=== PATIENT | male | born 1995 | race Caucasian/White ===

== ENCOUNTER 2018-11-16 06:09 | Emergency (ER) | payer MEDICAID, SELFPAY ==
[2018-07-15 07:24] VITALS: BMI 27.6
[2018-11-16 06:10] VITALS: BP 141/82; PULSE 84; RESP 19; TEMP 37; O2SAT 100; BMI 27.4
--- NOTE | 2018-11-16 06:16 | ED.DCSUM_ITS ---
History of Present Illness Chief Complaint: Abd Pain Informant: Patient Narrative: Stated for the last month he has had abdominal pain intermittently. It is a cramping pain. He has normal more than one bowel movement per day. Today he had one bowel movement. Yesterday he had one bowel movement. Patient denies any fevers or chills. He had 2 episodes of emesis this morning which brought him into the department. He has had decreased oral intake over the last couple days. Denies any diarrhea. Current severity is mild. No home treatment. No previous abdominal problems. Unsure if it was his gallbladder. - Past Medical History (1) Gastroenteritis Status: Acute Past Medical History - Allergies and Home Meds Allergies/Adverse Reactions: Allergies No Known Allergies Allergy (Verified 11/16/18 06:14) Primary Care Physician: Hi Aguilar DO [Primary Care Provider] - Prior records reviewed: Yes Surgical History: no surgical history Smoking Status: Current every day smoker Alcohol: None Drugs: None Review of Systems General: Denies: Chills, Fever, Sweats Eyes: Denies: Visual changes - bilaterally, Diplopia ENT: Denies: Rhinorrhea, Sore throat Cardiovascular: Denies: Chest pain, Palpitations Respiratory: Denies: Dyspnea, Cough, Dyspnea on exertion Gastrointestinal: Reports: Abdominal pain, Nausea, Vomiting. Denies: Diarrhea, Melena, Hematochezia Genitourinary: Denies: Dysuria, Hematuria, Frequency Musculoskeletal: Denies: Back pain, Extremity Pain Skin: Denies: Rash, Wounds Neurological: Denies: Headache, Weakness, Numbness Physical Exam Vital Signs/Narrative: Vital Signs Temp Pulse Resp BP Pulse Ox 11/16/18 06:10 98.6 F 84 19 H 141/82 H 100 General: Well nourished, Well developed, No Acute Distress Head: Normocephalic, Atraumatic Eyes: Perrl, EOMI ENT: Moist mucous membranes, No rhinorrhea Neck: Supple, Nontender Cardiovascular: Regular rate, Regular rhythm, No murmurs Respiratory: No distress, CTA bilaterally, Chest nontender Abdomen: Soft, Nontender, Nondistended, Normal bowel sounds Back: Nontender, Normal Inspection Extremities: Nontender, No edema Skin: Normal color, No rash Neurological: Alert, Oriented x3, Cranial nerves II-XII grossly intact, Normal Strength, Normal Sensation Psychological: Normal affect, Normal Mood Diagnostic/Tx/Re-eval - Medical Decision Making No reproducible tenderness. No tenderness in the gallbladder fossa. Patient given IV fluids and Zofran. Lab work obtained. Lab work shows a slight leukocytosis without left shift. Rest of his lab work is essentially unremarkable. Liver function test lipase normal. Patient felt better after IV fluids and Zofran. Will be discharged with Zofran and Bentyl. He will follow- up with his family doctor for further evaluation. I do not feel he needs an acute CAT scan or has an acute intra-abdominal emergency that would warrant an emergency CAT scan. He will follow-up as an outpatient ED Disposition - Plan for ED Patient: Disposition: Psychiatric Hospital or Unit Diagnosis: Abdominal pain, Vomiting Instructions: ABDOMINAL PAIN, Unkown Cause, (Male) Prescriptions: Dicyclomine HCl [Bentyl] 20 mg PO TIDAC #20 cap Prescription Printed Ondansetron [Zofran Odt] 4 mg PO Q8H PRN PRN #10 tab PRN Reason: Nausea Prescription Printed Referrals: Hi Aguilar DO [Primary Care Provider] -
[2018-11-16] MEDS: 0.9% Normal Saline 1,000 ML 1000 ML IV (06:29)
[2018-11-16] MEDS: Ondansetron 4 MG/2 ML Vial IV (06:29)
[2018-11-16 06:47] LABS: Absolute Lymphocyte Count 3.32 X10^3/ul (0.83-4.51); Absolute Neutrophil Count 7.9 X10^3/uL (2.0-7.7); Basophil# 0.02 X10^3/uL; Basophil% 0.2 % (0-1); Eosinophil# 0.46 X10^3/uL; Eosinophils% 3.7 % (0-5); Hematocrit 44.8 % (40-54); Hemoglobin 15.1 g/dl (13.0-16.5); Lymphocyte # 3.32 X10^3/ul (4.0); Lymphocyte % 26.5 % (19-41); Mean Corp Hgb Conc 33.7 g/gl (32-36); Mean Corpuscular Hgb 30.6 pg (27.0-32.0); Mean Corpuscular Volume 90.7 fL (80-94); Monocyte# 0.85 X10^3/uL; Monocyte% 6.8 % (0-10); Neutrophil # 7.87 X10^3/uL (2.7-7.7); Neutrophil % 62.6 % (47-70); Platelet Count 285 K/mm3 (150-450); RBC Distribution Width CV 13.5 % (11.6-14.6); RBC Distribution Width SD 44.4 fl (35.1-43.9); Red Blood Count 4.94 M/mm3 (4.6-6.2); White Blood Count 12.6 K/mm3 (4.4-11.0)
[2018-11-16 06:50] LABS: POSITIVE COUNT NO; POSITIVE DIFFERENTIAL NO; POSITIVE MORPHOLOGY NO
[2018-11-16 06:58] LABS: ALB/GLOB Ratio 1.1 RATIO (0.9-2.4); AST(SGOT) 21 U/L (15-37); Alanine Aminotransfer ALT/SGPT 30 U/L (16-61); Albumin, Serum 3.8 g/dL (3.2-5.0); Alkaline Phosphatase 60 U/L (45-117); Anion Gap 6 (5-15); BUN 15 mg/dL (7-18); BUN/Creat Ratio 14.4 RATIO (10-20); Calcium,Total 8.9 mg/dL (8.5-10.1); Chloride 108 mmol/L (98-107); Creatinine, Serum 1.04 mg/dL (0.70-1.30); EST Glomerular Filtration Rate 94 mL/min (>60); Est Glom Filt Rate - Afr Amer 113 mL/min (>60); Estimated Creatinine Clearance 117.66 ml/min; Globulin 3.5 g/dL (2.2-4.2); Glucose 99 mg/dL (74-106); Lipase 212 U/L (73-393); Potassium 3.8 mmol/L (3.5-5.1); Protein, Total 7.3 g/dL (6.4-8.2); Sodium Level 141 mmol/L (136-145)
--- NOTE | 2018-11-16 07:07 | ED.DEP ---
ED Disposition - Plan for ED Patient: Disposition: Psychiatric Hospital or Unit Diagnosis: Abdominal pain, Vomiting Instructions: ABDOMINAL PAIN, Unkown Cause, (Male) Prescriptions: Dicyclomine HCl [Bentyl] 20 mg PO TIDAC #20 cap Prescription Printed Famotidine [Pepcid] 20 mg PO BID #28 tab Prescription Printed Ondansetron [Zofran Odt] 4 mg PO Q8H PRN PRN #10 tab PRN Reason: Nausea Prescription Printed Referrals: Hi Aguilar DO [Primary Care Provider] -
[2018-11-16 07:37] VITALS: BP 121/69; PULSE 63; RESP 16; O2SAT 98
== END 2018-11-16 07:38 ==
PROVIDERS: Emergency Provider Emergency Medicine; Family Provider Family Medicine; PCP Family Medicine
DX: R10.9 Unspecified abdominal pain (principal); R11.2 Nausea with vomiting, unspecified; F17.200 Nicotine dependence, unspecified, uncomplicated
CPT/HCPCS: 80053; 83690; 85025; 96361; 96374; 99283; J7030; A4216; J2405

== ENCOUNTER 2019-02-14 07:27 | Emergency (ER) | payer MEDICAID, SELFPAY ==
[2019-02-14 07:28] VITALS: BP 135/68; PULSE 107; RESP 17; TEMP 36.9; O2SAT 99; BMI 27.1
--- NOTE | 2019-02-14 07:38 | ED.DCSUM_ITS ---
History of Present Illness Chief Complaint: Nausea/Vomiting Informant: Patient, Significant Other Onset: Yesterday, Hours Context: Sudden Onset Timing: Continuous Quality: Pain right side with nausea and vomiting Location: Right-sided abdominal pain and bilateral costal margin pain Current Severity: Mild Maximum Severity: Moderate Worsened by: Vomiting Relieved by: Nothing Associated Symptoms: Subjective fever with chills Narrative: Patient is a 23-year-old male who presents with nausea and vomiting 1 hour after eating brought his significant other informed he has been to the urgent care 5 times over the past year for right-sided abdominal pain. He was prescribed Pepcid, dicyclomine and Zofran. Patient answering father states medicine is not helpful. He reports vomiting 12 times since 7 PM. Initially purple in color now green in color. There is no blood or coffee grounds noted. Last bowel movement yesterday and normal. No ill contacts. No known family history of cholelithiasis. He denies cough, shortness of breath or difficulty breathing. He denies dysuria, frequency, urgency or hematuria. There is no history of renal ureterolithiasis. He does report dry mouth, thirst and lightheadedness with standing. He denies black or maroon stool. He has not had any since 1800. Prior similar symptoms: Yes Recent Illness/Hospitalization: No - Past Medical History (1) Gastroenteritis Status: Acute Past Medical History - Allergies and Home Meds Allergies/Adverse Reactions: Allergies No Known Allergies Allergy (Verified 02/14/19 07:28) Primary Care Physician: Hi Aguilar DO [Primary Care Provider] - Prior records reviewed: Yes Surgical History: no surgical history Lives: Spouse/ Significant Other Smoking Status: Current every day smoker Alcohol: Heavy - 7+ beers on weekends Drugs: None Review of Systems General: Reports: Chills, Fever, Subjective, Sweats. Denies: Malaise Eyes: Denies: Visual changes - bilaterally, Blurred Vision - bilaterally ENT: Denies: Bilateral ear pain, Rhinorrhea, Sore throat Cardiovascular: Reports: Chest pain - With vomiting. Denies: Palpitations, Heart racing Respiratory: Denies: Dyspnea, Cough, Dyspnea on exertion Gastrointestinal: Reports: Abdominal pain, Nausea, Vomiting. Denies: Diarrhea, Constipation, Melena, Hematochezia, -, - Genitourinary: Denies: Dysuria, Hematuria, Frequency Musculoskeletal: Denies: Myalgias, Arthralgias, Neck pain, Back pain, Swelling, Extremity Pain, -, - Skin: Denies: Rash, Wounds Neurological: Denies: Headache, Weakness, Numbness Endocrine: Denies: Polyuria, Polydipsia Hematologic: Denies: Easy bruising, Easy bleeding Physical Exam Vital Signs/Narrative: Vital Signs Temp Pulse Resp BP Pulse Ox 02/14/19 07:28 98.5 F 107 H 17 135/68 H 99 Inital Vital Signs reviewed: Yes General: Well nourished, Well developed, No Acute Distress Head: Normocephalic, Atraumatic Eyes: Perrl, EOMI. Negative for: Pale conjunctiva, Scleral icterus ENT: No rhinorrhea, TM's clear, Dry mucous membranes Neck: Supple, Nontender, No lymphadenopathy, No JVD Cardiovascular: Regular rhythm, No murmurs, Normal S1, Normal S2, Tachycardia Respiratory: No distress, CTA bilaterally, Chest nontender Abdomen: Soft, Nondistended, Normal bowel sounds, No masses, Tender - Tenderness with deep palpation upper quadrants.. Negative for: Nontender, Guarding, Rebound tenderness, Hyperactive bowel sounds, Hypoactive bowel sounds, Hepatomegaly, Splenomegaly, Mass, Diez's sign Rectal: Deferred Back: Nontender, Normal Inspection. Negative for: CVA tenderness Extremities: Nontender, No edema Skin: Normal color, No rash, No Trauma. Negative for: Cyanosis, Diaphoresis, Jaundice Neurological: Alert, Oriented x3, Cranial nerves II-XII grossly intact, Normal Strength, Normal Sensation, Normal Gait Psychological: Normal affect, Normal Mood Diagnostic/Tx/Re-eval Impressions Gallbladder Ultrasound 02/14/19 08:38 IMPRESSION: Normal right upper quadrant ultrasound examination. Electronically Signed: Lakhwinder Chan, at 10:28 EDT , Service support , 02/14/19 08:38 Gallbladder [US] Stat Laboratory Results 02/14/19 02/14/19 07:48 07:48 WBC 19.4 H RBC 5.32 Hgb 15.9 Hct 48.5 MCV 91.2 MCH 29.9 MCHC 32.8 RDW Std Deviation 43.0 RDW Coeff of Supa 12.9 Plt Count 336 MPV 8.9 Immature Gran % (Auto) 0.400 Neut % (Auto) 89.1 H Lymph % (Auto) 6.3 L [place] % (Auto) 3.7 Eos % (Auto) 0.2 Baso % (Auto) 0.3 Absolute Neuts (auto) 17.3 H Absolute Lymphs (auto) 1.22 Nucleated RBC % 0 Total Bilirubin 0.90 Direct Bilirubin 0.18 AST 20 ALT 30 Alkaline Phosphatase 65 Total Protein 7.9 Albumin 4.1 Globulin 3.8 Lipase 265 Ultrasound reveals no abnormality to explain patient's right-sided abdominal pain. Liver enzymes and lipase were normal. White count is elevated 19.4 thousand. There is a nonspecific abnormality. Suspect this is secondary to his nausea and vomiting. If patient passes p.o. challenge will discharge to home. - Medical Decision Making With prior history of abdominal pain and reported abdominal pain with nausea vomiting after eating fatty meal will obtain liver enzymes, CBC and lipase. With history of drinking heavily on weekends need to evaluate for pancreatitis as well. Differential diagnosis is viral illness with nausea and vomiting, cholelithiasis with biliary colic, pancreatitis or abdominal pain of unknown etiology She was reassessed at 0845. He was made aware of his results and reason for ultrasound of the right upper quadrant. He reports the nausea has improved. He has not vomited since he is been in the department. Since he has an elevated white count with history of right-sided upper abdominal pain x5 over the past year obtain ultrasound of the right upper quadrant/gallbladder to assess for cholelithiasis, cholecystitis etc. Passed p.o. challenge. Will discharge to home. ED Disposition - Plan for ED Patient: Disposition: Home or Assisted Living Diagnosis: Nausea & vomiting, Right upper quadrant abdominal pain, Mild dehydration Instructions: VOMITING (6y-Adult) Referrals: Hi Aguilar, DO [Primary Care Provider] - 1-2 Days if not improving
[2019-02-14] MEDS: 0.9% Normal Saline 1,000 ML 1000 ML IV ×2 (07:48→08:55)
[2019-02-14] MEDS: Ondansetron 4 MG/2 ML Vial IV (07:53)
[2019-02-14 07:57] LABS: Absolute Lymphocyte Count 1.22 X10^3/uL (0.83-4.51); Absolute Neutrophil Count 17.3 X10^3/uL (2.0-7.7); Basophil# 0.06 X10^3/uL; Basophil% 0.3 % (0-1); Eosinophil# 0.03 X10^3/uL; Eosinophils% 0.2 % (0-5); Hematocrit 48.5 % (40-54); Hemoglobin 15.9 g/dL (13.0-16.5); Lymphocyte # 1.22 X10^3/ul (4.0); Lymphocyte % 6.3 % (19-41); Mean Corp Hgb Conc 32.8 g/dL (32-36); Mean Corpuscular Hgb 29.9 pg (27.0-32.0); Mean Corpuscular Volume 91.2 fL (80-94); Mean Platelet Vol. 8.9 fl (6.2-12.0); Monocyte# 0.71 X10^3/uL; Monocyte% 3.7 % (0-10); NRBC Flagged by Analyzer 0 % (0-5); Neutrophil # 17.32 X10^3/uL (2.7-7.7); Neutrophil % 89.1 % (47-70); Platelet Count 336 K/mm3 (150-450); RBC Distribution Width CV 12.9 % (11.6-14.6); Red Blood Count 5.32 M/mm3 (4.6-6.2); White Blood Count 19.4 K/mm3 (4.4-11.0)
[2019-02-14 08:12] LABS: AST(SGOT) 20 U/L (15-37); Alanine Aminotransfer ALT/SGPT 30 U/L (16-61); Albumin, Serum 4.1 g/dL (3.2-5.0); Alkaline Phosphatase 65 U/L (45-117); Bilirubin, Direct 0.18 mg/dL (0.00-0.30); Globulin 3.8 g/dL (2.2-4.2); Lipase 265 U/L (73-393); Protein, Total 7.9 g/dL (6.4-8.2)
--- NOTE | 2019-02-14 08:38 | US_ITS ---
STUDY: ABDOMINAL ULTRASOUND - RIGHT UPPER QUADRANT REASON FOR VISIT: Male, 23 years old right upper quadrant pain with nausea and vomiting. TECHNIQUE: Ultrasound evaluation of the right upper quadrant was performed with real-time and static bender-scale imaging. TECHNICAL QUALITY: Adequate. COMPARISON: None. FINDINGS: Liver: The liver measures 15.5 cm. There is normal echogenicity of the liver. The bile ducts are within normal limits. There is hepatic color flow. The direction of portal flow is hepatopetal. There is no demonstrated mass lesion. Gallbladder: Normal distended gallbladder. The gallbladder wall measures 2.1 mm. There is a negative sonographic Diez's sign. There is no pericholecystic fluid. There are no gallstones. Common Bile Duct (C.B.D.): The common bile duct measures 2.7 mm. Pancreas: Normal size of the head, body and tail of the pancreas. There is normal echogenicity of the pancreas. There is no demonstrated pancreatic mass or cyst. Right Kidney: Normal size of the right kidney. The right kidney measures 11.7 cm x 5.2 cm x 6.2 cm. Normal renal cortex. The right cortex measures 2.0 cm. There is no demonstrated renal mass or cyst. There is no right hydronephrosis. US/Gallbladder IMPRESSION: Normal right upper quadrant ultrasound examination. Electronically Signed: Lakhwinder Chan, at 10:28 EDT , Service support ,
[2019-02-14 10:14] VITALS: BP 114/60; PULSE 67; RESP 20; O2SAT 100
== END 2019-02-14 11:23 | disposition home or self-care (01) ==
PROVIDERS: Emergency Provider Emergency Medicine; Family Provider Family Medicine; PCP Family Medicine
DX: R11.2 Nausea with vomiting, unspecified (principal); R10.11 Right upper quadrant pain; E86.0 Dehydration; F10.99 Alcohol use, unspecified with unspecified alcohol-induced disorder; F17.200 Nicotine dependence, unspecified, uncomplicated
CPT/HCPCS: 76705; 80076; 83690; 85025; 96361; 96374; 99283; J7030; A4216; J2405

== ENCOUNTER 2019-03-07 | Emergency (ER) | payer MEDICAID, SELFPAY ==
[2019-03-07 00:01] VITALS: BP 130/75; PULSE 74; RESP 20; TEMP 36.3; O2SAT 100; BMI 28.8
--- NOTE | 2019-03-07 00:09 | CT_ITS ---
STUDY: CT ABDOMEN AND PELVIS WITH CONTRAST REASON FOR EXAM: Male, 23 years old. Right-sided abdominal pain RADIATION DOSAGE (If Supplied By Facility): CTDIvol = ( 16.11 ) mGy, DLP = ( 1060.98 ) mGycm TECHNIQUE: Transaxial images were obtained from the dome of the diaphragm to the symphysis pubis with oral contrast. Oral and amp; IV Gastrografin and amp; 100mL Isovue-300 100ML was administered. Sagittal and coronal images were reconstructed. Individualized dose optimization techniques were used for this CT. COMPARISON: None. FINDINGS: The visualized lung bases are unremarkable. The visualized portions of the heart are within normal limits. Normal liver. Normal gallbladder and extrahepatic biliary system. Normal spleen. Normal pancreas. Normal bilateral adrenal glands. There is a proximal right ureteral calculus measuring approximately 6 mm with mild upstream right hydroureter and hydronephrosis. There is bilateral nonobstructive subcentimeter nephrolithiasis. Normal visualized stomach. Normal small intestine. Normal colon. The appendix is visualized and appears normal. Normal abdominal aorta. Normal inferior vena cava. Normal retroperitoneum. Normal urinary bladder. Normal abdominal wall. Normal osseous structures. CT/Abdomen/Pelvis WITH Contrast IMPRESSION: 6 mm proximal right ureteral calculus with mild upstream hydroureter and hydronephrosis. Electronically Signed: Dave Owens, at 2:46 EDT Tel , Service support ,
--- NOTE | 2019-03-07 00:10 | ED.DCSUM_ITS ---
- ER Visit Summary Date of Service: 03/07/19 Chief Complaint: Abdominal pain History of Present Illness: The patient is a 23 M presenting with abdominal pain, nausea, vomiting. Patient states this started 1.5 hours ago. He has vomited several times. Denies diarrhea. Denies blood in his emesis. He states he drank apple cider before this started. He has history of similar symptoms in the past. He was seen in mid-January for similar complaints. He had a gallbladder ultrasound at that time which was normal. He admits to occasional marijuana use. Denies fever or other complaints. Physical Examination: Vitals are stable. Patient is afebrile. Alert no acute distress. HEENT exam dry mucous membranes Neck is supple. Lungs are clear and equal bilaterally. Heart is regular rate and rhythm. Abdomen is soft right lower quadrant tenderness with no guarding or rebound Back: Nontender Extremities are unremarkable. Skin is warm and dry. Remainder of exam is unremarkable. Emergency Department Course and Treatment: Patient was given IV fluids, morphine, Zofran. CBC normal except white count 24.4. Previous white count 19.4. Chemistries show glucose 120. Liver lipase are normal. CT abdomen pelvis shows 6 mm proximal right ureteral calculus with mild upstream hydroureter and hydronephrosis. Urinalysis shows 0 white blood cells, 50-100 red blood cells. On reevaluation, patient is feeling much improved. He is given prescription for Percocet and Zofran. Advised to follow-up with Dr. Cali. Advised to return to the ED for worsening complaints. Disposition: Discharge home Impression: Urolithiasis This note was generated with [employer] dictation software. It may contain incorrect words, spelling, and punctuation that were not noted in review of the chart prior to signing ED Disposition - Plan for ED Patient: Instructions: KIDNEY STONE w/ Colic Prescriptions: Oxycodone HCl/Acetaminophen [Percocet 5/325] 1 tab PO Q6H PRN PRN 3 Days #12 tab PRN Reason: Pain Prescription Printed Ondansetron [Zofran Odt] 4 mg PO Q8H PRN PRN #10 tab PRN Reason: Nausea Prescription Printed Referrals: Hi Aguilar DO [Primary Care Provider] - Marty Cali MD [STAFF PHYSICIAN] -
[2019-03-07] MEDS: 0.9% Normal Saline 1,000 ML 1000 ML IV (00:16)
[2019-03-07] MEDS: Ondansetron 4 MG/2 ML Vial IV (00:16)
[2019-03-07 00:25] LABS: Absolute Lymphocyte Count 3.41 X10^3/uL (0.83-4.51); Absolute Neutrophil Count 18.9 X10^3/uL (2.0-7.7); Basophil# 0.11 X10^3/uL; Basophil% 0.5 % (0-1); Eosinophil# 0.29 X10^3/uL; Eosinophils% 1.2 % (0-5); Hematocrit 46.8 % (40-54); Hemoglobin 15.8 g/dL (13.0-16.5); Lymphocyte # 3.41 X10^3/ul (4.0); Mean Corp Hgb Conc 33.8 g/dL (32-36); Mean Corpuscular Hgb 30.2 pg (27.0-32.0); Mean Corpuscular Volume 89.5 fL (80-94); Mean Platelet Vol. 8.9 fl (6.2-12.0); Monocyte% 6.5 % (0-10); NRBC Flagged by Analyzer 0 % (0-5); Neutrophil # 18.89 X10^3/uL (2.7-7.7); Neutrophil % 77.3 % (47-70); POSITIVE DIFFERENTIAL YES; Platelet Count 393 K/mm3 (150-450); RBC Distribution Width CV 12.6 % (11.6-14.6); RBC Distribution Width SD 41.7 fl (35.1-43.9); Red Blood Count 5.23 M/mm3 (4.6-6.2); White Blood Count 24.4 K/mm3 (4.4-11.0)
[2019-03-07 00:27] LABS: Differential Indicated SCAN CRITERIA MET
[2019-03-07 00:43] LABS: ALB/GLOB Ratio 1.3 RATIO (0.9-2.4); AST(SGOT) 22 U/L (15-37); Alanine Aminotransfer ALT/SGPT 31 U/L (16-61); Albumin, Serum 4.5 g/dL (3.2-5.0); Alkaline Phosphatase 61 U/L (45-117); Anion Gap 10 (5-15); BUN 16 mg/dL (7-18); BUN/Creat Ratio 13.7 RATIO (10-20); Calcium,Total 9.4 mg/dL (8.5-10.1); Chloride 106 mmol/L (98-107); Creatinine, Serum 1.17 mg/dL (0.70-1.30); EST Glomerular Filtration Rate 82 mL/min (>60); Est Glom Filt Rate - Afr Amer 99 mL/min (>60); Estimated Creatinine Clearance 98.19 ml/min; Globulin 3.5 g/dL (2.2-4.2); Glucose 120 mg/dL (74-106); Lipase 240 U/L (73-393); Potassium 3.5 mmol/L (3.5-5.1); Sodium Level 140 mmol/L (136-145)
[2019-03-07] MEDS: Morphine 4 MG/ML Syringe IV ×2 (00:47→02:40)
[2019-03-07] MEDS: proMETHazine 25 MG/ML Syringe 6.25 MG IV (00:47)
[2019-03-07 00:50] LABS: Differential Comment SCANNED
[2019-03-07] MEDS: 0.9% Normal Saline 1,000 ML 999 ML IV (01:22)
[2019-03-07 02:28] LABS: Bacteria 0 SEEN /hpf (None Seen); Mucous, Urine 0 SEEN /hpf (<or=2+); Squamous Epithelial Cells - UA 0 SEEN /hpf (0-5); White Blood Cells 0 SEEN /hpf (0-5)
[2019-03-07 02:30] LABS: Color, Urine Yellow (Yellow); Glucose, Dipstick Normal (Normal); Ketone-Dipstick 5 mg/dl (Negative); Leukocyte Esterase-Dipstick 25 /ul (Negative); Nitrite-Dipstick Negative (Negative); Occult Blood-Urine 250 /ul (Negative); Protein-Dipstick 30 mg/dl (Negative); Specific Gravity, Urine 1.015 (1.002-1.030); Urine Bilirubin Dipstick Negative (Negative); Urine Clarity Sl. Cloudy (Clear); Urine Urobilinogen Normal (Normal)
[2019-03-07 02:37] LABS: Amorphous Sediment 1+; Red Blood Cells-Urine 50-100 SEEN /hpf (0-5)
--- NOTE | 2019-03-07 02:53 | ED.DEP ---
ED Disposition - Plan for ED Patient: Instructions: KIDNEY STONE w/ Colic Prescriptions: Oxycodone HCl/Acetaminophen [Percocet 5/325] 1 tablet PO Q6H PRN PRN 3 Days #12 tablet PRN Reason: Pain Ondansetron [Zofran Odt] 4 mg PO Q8H PRN PRN #10 tablet PRN Reason: Nausea Referrals: Hi Aguilar DO [Primary Care Provider] - Marty Cali MD [STAFF PHYSICIAN] -
[2019-03-07 03:09] VITALS: BP 115/60; PULSE 67; RESP 18; O2SAT 100
[2019-03-07 12:28] LABS: Pathologist Review Reviewed
== END 2019-03-07 03:10 | disposition home or self-care (01) ==
LOC: ED 00:28
PROVIDERS: Emergency Provider Emergency Medicine; Family Provider Family Medicine; PCP Family Medicine
DX: N13.2 Hydronephrosis with renal and ureteral calculous obstruction (principal); F12.90 Cannabis use, unspecified, uncomplicated
CPT/HCPCS: 74177; 80053; 81001; 83690; 85025; 96361; 96374; 96375; 96376; 99283; J7030; Q9967; A4216; J2405

== ENCOUNTER 2019-03-07 20:05 | Observation (INO) | payer MEDICAID, SELFPAY ==
[2019-03-07 00:01] VITALS: BMI 28.8
[2019-03-07 20:05] VITALS: BP 154/75; PULSE 66; RESP 18; TEMP 37; O2SAT 100; BMI 27.2
--- NOTE | 2019-03-07 20:52 | ED.DCSUM_ITS ---
History of Present Illness Chief Complaint: Flank Pain Detail of Chief Complaint: Right flank pain Informant: Patient, Significant Other Onset: Yesterday Current Severity: Severe Maximum Severity: Severe Narrative: Patient presents with right flank pain. Significant other states he had pain intermittently for several years, but pain suddenly worsened yesterday. He was seen in the ER yesterday and diagnosed with a 6 mm proximal right ureter stone. Significant other states that he has not been able to keep his pain medication down today due to vomiting. Past Medical History - Allergies and Home Meds Allergies/Adverse Reactions: Allergies No Known Allergies Allergy (Verified 03/07/19 20:07) Primary Care Physician: Hi Aguilar DO [Primary Care Provider] - Prior records reviewed: Yes Past Medical History: - - Reviewed Surgical History: no surgical history Lives: Spouse/ Significant Other Smoking Status: Current every day smoker Review of Systems General: Denies: Chills, Fever Eyes: Denies: Visual changes - bilaterally ENT: Denies: Bilateral ear pain Cardiovascular: Denies: Chest pain Respiratory: Denies: Dyspnea, Cough Gastrointestinal: Reports: Abdominal pain, Nausea, Vomiting. Denies: Diarrhea, Constipation Musculoskeletal: Reports: Back pain - Right flank. Denies: Extremity Pain Neurological: Denies: Headache Hematologic: Denies: Easy bruising Physical Exam Vital Signs/Narrative: Vital Signs Temp Pulse Resp BP Pulse Ox 03/07/19 20:05 98.6 F 66 18 154/75 H 100 Inital Vital Signs reviewed: Yes General: Well nourished, Well developed Head: Normocephalic ENT: Moist mucous membranes Neck: Supple Cardiovascular: Regular rate, Regular rhythm Respiratory: No distress, CTA bilaterally Abdomen: Soft, Tender - Mild right lower quadrant tenderness.. Negative for: Guarding, Rebound tenderness Back: CVA tenderness Extremities: Nontender Skin: Normal color, No rash Neurological: Alert, Oriented x3 Psychological: Normal affect Diagnostic/Tx/Re-eval Impressions KUB X-Ray 03/07/19 20:55 IMPRESSION: No obstruction. Electronically Signed: Alexsander Alcocer MD at 22:11 EDT , Service support , 03/07/19 20:55 KUB [Abdomen Single View] [RAD] Stat Laboratory Results 03/07/19 03/07/19 03/07/19 21:25 21:25 21:25 WBC 19.4 H RBC 5.09 Hgb 15.3 Hct 46.4 MCV 91.2 MCH 30.1 MCHC 33.0 RDW Std Deviation 43.8 RDW Coeff of Supa 13.0 Plt Count 329 MPV 9.1 Immature Gran % (Auto) 0.400 Neut % (Auto) 83.9 H Lymph % (Auto) 9.7 L [place] % (Auto) 5.5 Eos % (Auto) 0.2 Baso % (Auto) 0.3 Absolute Neuts (auto) 16.3 H Absolute Lymphs (auto) 1.87 Nucleated RBC % 0 Sodium 140 Potassium 3.6 Chloride 106 Carbon Dioxide 25.0 Anion Gap 9 BUN 19 H Creatinine 1.33 H Estim Creat Clear Calc 89.19 Est GFR (MDRD) Af Amer 85 Est GFR (MDRD) Non-Af 70 BUN/Creatinine Ratio 14.3 Glucose 120 H Calcium 9.4 Urine Color Yellow Urine Clarity Sl. Cloudy Urine pH 5.0 Ur Specific [place] 1.025 Urine Protein 30 H Urine Glucose (UA) Normal Urine Ketones 50 H Urine Occult Blood 250 H Urine Nitrite Negative Urine Bilirubin Negative Urine Urobilinogen 1 H Ur Leukocyte Esterase 25 H Urine RBC 10-25 SEEN Urine WBC 0-5 SEEN Ur Squamous Epith Cells 0-5 SEEN Urine Bacteria 0 SEEN Urine Mucus 0 SEEN - Medical Decision Making Patient was given morphine, Toradol, Zofran, and IV fluids. On repeat evaluation pain is improving. In spite of taking Zofran at home he is still continued to have vomiting today and could not keep his pain meds down. I did review his CT scan. Stone was 6 mm in size and proximal in the ureter causing hydronephrosis and hydroureter. I will speak with Dr. Cali to see if we can bring the patient in for observation and further pain control and management. ED Disposition - Plan for ED Patient: Disposition: Acute Care Hospital [facility] Diagnosis: Right kidney stone Referrals: Hi Aguilar DO [Primary Care Provider] -
--- NOTE | 2019-03-07 20:55 | RAD_ITS ---
STUDY: X-RAY - ABDOMEN/PELVIS REASON FOR EXAM: Male, 23 years old. Pain and vomiting. Kidney stones TECHNIQUE: Two AP supine views of the abdomen and pelvis. COMPARISON: March 07, 2019. FINDINGS: Normal visualized lung bases. There are no dilated loops of bowel. There is contrast in the colon from recent CT scan including obscuring region of kidney stones seen on recent CT . There is no demonstrated free abdominal air. Normal soft tissue structures. Normal visualized osseous structures. RAD/Abdomen Single View IMPRESSION: No obstruction. Electronically Signed: Alexsander Alcocer MD at 22:11 EDT , Service support ,
[2019-03-07] MEDS: Ketorolac 30 MG/ML Syringe IV (21:19)
[2019-03-07] MEDS: Ondansetron 4 MG/2 ML Vial IV (21:19)
[2019-03-07] MEDS: 0.9% Normal Saline 1,000 ML 150 ML IV (21:19)
[2019-03-07] MEDS: Morphine 4 MG/ML Syringe IV (21:19)
[2019-03-07 21:29] LABS: Bacteria 0 SEEN /hpf (None Seen); Mucous, Urine 0 SEEN /hpf (<or=2+)
[2019-03-07 21:32] LABS: Color, Urine Yellow (Yellow); Glucose, Dipstick Normal (Normal); Ketone-Dipstick 50 mg/dl (Negative); Leukocyte Esterase-Dipstick 25 /ul (Negative); Nitrite-Dipstick Negative (Negative); Occult Blood-Urine 250 /ul (Negative); Protein-Dipstick 30 mg/dl (Negative); Specific Gravity, Urine 1.025 (1.002-1.030); Urine Bilirubin Dipstick Negative (Negative); Urine Clarity Sl. Cloudy (Clear); Urine Urobilinogen 1 mg/dl (Normal)
[2019-03-07 21:33] LABS: Absolute Lymphocyte Count 1.87 X10^3/uL (0.83-4.51); Absolute Neutrophil Count 16.3 X10^3/uL (2.0-7.7); Basophil# 0.06 X10^3/uL; Basophil% 0.3 % (0-1); Eosinophil# 0.03 X10^3/uL; Eosinophils% 0.2 % (0-5); Hematocrit 46.4 % (40-54); Hemoglobin 15.3 g/dL (13.0-16.5); Lymphocyte # 1.87 X10^3/ul (4.0); Lymphocyte % 9.7 % (19-41); Mean Corpuscular Hgb 30.1 pg (27.0-32.0); Mean Corpuscular Volume 91.2 fL (80-94); Mean Platelet Vol. 9.1 fl (6.2-12.0); Monocyte# 1.07 X10^3/uL; Monocyte% 5.5 % (0-10); NRBC Flagged by Analyzer 0 % (0-5); Neutrophil # 16.26 X10^3/uL (2.7-7.7); Neutrophil % 83.9 % (47-70); Platelet Count 329 K/mm3 (150-450); RBC Distribution Width SD 43.8 fl (35.1-43.9); Red Blood Count 5.09 M/mm3 (4.6-6.2); White Blood Count 19.4 K/mm3 (4.4-11.0)
[2019-03-07 21:38] LABS: Red Blood Cells-Urine 10-25 SEEN /hpf (0-5); Squamous Epithelial Cells - UA 0-5 SEEN /hpf (0-5); White Blood Cells 0-5 SEEN /hpf (0-5)
[2019-03-07 21:46] LABS: Anion Gap 9 (5-15); BUN 19 mg/dL (7-18); BUN/Creat Ratio 14.3 RATIO (10-20); Calcium,Total 9.4 mg/dL (8.5-10.1); Chloride 106 mmol/L (98-107); Creatinine, Serum 1.33 mg/dL (0.70-1.30); EST Glomerular Filtration Rate 70 mL/min (>60); Est Glom Filt Rate - Afr Amer 85 mL/min (>60); Estimated Creatinine Clearance 89.19 ml/min; Glucose 120 mg/dL (74-106); Potassium 3.6 mmol/L (3.5-5.1); Sodium Level 140 mmol/L (136-145)
[2019-03-07 22:11] VITALS: BP 145/70; PULSE 65; RESP 14; O2SAT 98
[2019-03-07 23:12] VITALS: BP 135/80; PULSE 62; RESP 14; O2SAT 98
[2019-03-07 23:57] VITALS: BMI 27.5
[2019-03-08 00:44] VITALS: BMI 27.6
[2019-03-08 00:59] VITALS: BP 109/61; PULSE 60; RESP 16; TEMP 36.8; O2SAT 99
[2019-03-08 05:06] VITALS: BP 107/59; PULSE 65; RESP 14; TEMP 36.7; O2SAT 100
[2019-03-08] MEDS: 0.9% Normal Saline 1,000 ML 75 ML IV (05:12)
[2019-03-08] MEDS: Ketorolac 15 MG/ML Vial IV (06:47)
--- NOTE | 2019-03-08 07:40 | PCM.HP.STD ---
History of Present Illness Date of Admission: 03/08/19 Chief Complaint: Right renal calculi and ureteral calculi The patient is a 23 year old male who presents with a 5 mm stone in the mid right ureter ER called me and asked me to admit the patient for kidney stone pain. This morning the patient was comfortable and no fevers or chills no signs of infection. Will discharge patient this morning on pain medicine and arrange outpatient surgery Past Medical History Medical History: Medical History (Last Updated 07/15/18 @ 07:27 by Yadira Mast) Diarrhea R19.7 Difficulty balancing R29.818 History of loss of consciousness Z87.898 Allergies No Known Allergies Allergy (Verified 03/07/19 20:07) Home Medications: Ambulatory Orders Medication Instructions Recorded Ondansetron [Zofran Odt] 4 mg PO Q8H PRN PRN #10 tab 03/07/19 Oxycodone HCl/Acetaminophen 1 tab PO Q6H PRN PRN 3 Days #12 tab 03/07/19 [Percocet 5/325] Tazarotene [Tazorac] 1 applic TOPICAL BID 03/07/19 Multivitamin with Minerals 1 tab PO DAILY 03/08/19 [Multiple Vitamin] Surgical History: no surgical history Lives: Spouse/ Significant Other Smoking Status: Current some day smoker Tobacco Use: Cigarettes Review of Systems Constitutional: Denies: Chills, Fever, Weight Change HEENT: Denies: Head Aches, Sinus Congestion, Sinus Drainage Cardiovascular: Denies: Chest Pain, Palpitations Respiratory: Denies: Cough, Shortness of breath at rest, Sputum production Gastrointestinal: Denies: Abdominal Pain, Nausea, Vomiting Genitourinary: Denies: Dysuria Musculoskeletal: Denies: Joint Pain, Joint Tenderness Skin: Denies: Rash, Wounds Neurological: Denies: Numbness, Tingling, Focal weakness Psychiatric: Denies: Anxiety, Depression, Homicidal Ideations, Suicidal Ideations Hematologic/ Lymphatic: Denies: Easy Bruising, Easy Bleeding VTE Information - Inpt Only VTE Present on Admission: No VTE Mechan Device Prophylaxis: SCD's Patient Problems: Active and Suspected Problems (Last Updated 07/15/18 @ 07:27 by Yadira Mast) Right kidney stone (Acute) - Physical Exam General: Alert, Oriented x3, Cooperative HEENT: Atraumatic, PERRLA, EOMI, Normocephalic Neck: Supple, No JVD, Negative Carotid Bruits Lungs: Clear to auscultation, Normal air movement Cardiovascular: Regular rate, No murmurs Abdomen: Bowel Sounds Present, Soft, Non Tender Extremities: No edema, Capillary Refill Less than 3 Seconds Skin: No rashes, No breakdown Musculoskeletal: No Tenderness to Palpation of Joints or Extremities Neurological: Cranial nerves II-XII grossly intact Psych/Mental Status: Normal Affect, Appropriate Vital Signs Temp Pulse Resp BP Pulse Ox 98.1 F 65 14 107/59 L 100 03/08/19 05:06 03/08/19 05:06 03/08/19 05:06 03/08/19 05:06 03/08/19 05:06 Oxygen Delivery Method Room Air Weight: 87.1 kg Body Mass Index (BMI) 27.5 Intake and Output for Last 24 Hours 03/06/19 03/07/19 03/08/19 23:59 23:59 23:59 Intake Total 1000 / 1000 Output Total 150 / 150 Balance 850 / 850 Laboratory Tests Past 24 Hrs 03/07/19 03/07/19 03/07/19 21:25 21:25 21:25 WBC 19.4 H RBC 5.09 Hgb 15.3 Hct 46.4 MCV 91.2 MCH 30.1 MCHC 33.0 RDW Std Deviation 43.8 RDW Coeff of Supa 13.0 Plt Count 329 MPV 9.1 Immature Gran % (Auto) 0.400 Neut % (Auto) 83.9 H Lymph % (Auto) 9.7 L [place] % (Auto) 5.5 Eos % (Auto) 0.2 Baso % (Auto) 0.3 Absolute Neuts (auto) 16.3 H Absolute Lymphs (auto) 1.87 Nucleated RBC % 0 Sodium 140 Potassium 3.6 Chloride 106 Carbon Dioxide 25.0 Anion Gap 9 BUN 19 H Creatinine 1.33 H Estim Creat Clear Calc 89.19 Est GFR (MDRD) Af Amer 85 Est GFR (MDRD) Non-Af 70 BUN/Creatinine Ratio 14.3 Glucose 120 H Calcium 9.4 Urine Color Yellow Urine Clarity Sl. Cloudy Urine pH 5.0 Ur Specific [place] 1.025 Urine Protein 30 H Urine Glucose (UA) Normal Urine Ketones 50 H Urine Occult Blood 250 H Urine Nitrite Negative Urine Bilirubin Negative Urine Urobilinogen 1 H Ur Leukocyte Esterase 25 H Urine RBC 10-25 SEEN Urine WBC 0-5 SEEN Ur Squamous Epith Cells 0-5 SEEN Urine Bacteria 0 SEEN Urine Mucus 0 SEEN Assessment/Plan All Active Problems (Last Updated 07/15/18 @ 07:27 by Yadira Mast) Right kidney stone (Acute) Gastroenteritis (Acute) 23-year-old male with a right mid ureteral calculi admitted for pain control will discharge home this morning with pain medicine and antinausea pills will have my office set him up for outpatient surgery right ESWL possible stent this coming Thursday.
--- NOTE | 2019-03-08 07:44 | DCINST_ITS ---
Discharge Diet: Light diet - advance as tolerated Discharge Activity: Return to Normal Activity Call your doctor if your incision/area has: Continuous Slow Oozing, Sudden Increased Bleeding, Increased Pain/ Swelling, Increased Redness, Foul Smelling Discharge, Swelling at the incision site Suture Line Care: Avoid Pulling/Pushing, Avoid Pinching/Bending Allergies/Adverse Reactions: Allergies No Known Allergies Allergy (Verified 03/07/19 20:07) Medications to take at Discharge Ondansetron [Zofran Odt] 4 mg PO Q8H PRN PRN #10 tab 03/07/19 Oxycodone HCl/Acetaminophen [Percocet 5/325] 1 tab PO Q6H PRN PRN 3 Days #12 tab 03/07/19 Tazarotene [Tazorac] 1 applic TOPICAL BID 03/07/19 HYDROmorphone tablet [Dilaudid] 2 mg PO Q3H PRN PRN 5 Days #20 tab 03/08/19 Ketorolac [Toradol] 10 mg PO Q6H PRN PRN #10 tab 03/08/19 Multivitamin with Minerals [Multiple Vitamin] 1 tab PO DAILY 03/08/19 Ondansetron [Zofran Odt] 4 mg PO Q8H PRN PRN #10 tab 03/08/19 The following prescriptions were given: HYDROmorphone tablet [Dilaudid] 2 mg PO Q3H PRN PRN 5 Days #20 tab PRN Reason: Pain Or Fever Prescription Printed Ketorolac [Toradol] 10 mg PO Q6H PRN PRN #10 tab PRN Reason: severe pain Prescription Printed Ondansetron [Zofran Odt] 4 mg PO Q8H PRN PRN #10 tab PRN Reason: Nausea Prescription Printed Primary Care Physician: Hi Aguialr DO [Primary Care Provider] - Test Results: Test results from this visit will be discussed in further detail at your follow- up appointment, if applicable. Please Follow Up With: Marty Cali MD When: please call to set up surgery for stone
[2019-03-08 08:03] VITALS: BP 127/71; PULSE 69; RESP 18; TEMP 36.6; O2SAT 98
== END 2019-03-08 09:00 | disposition home or self-care (01) ==
LOC: ED 22:40 → MS2 23:17
PROVIDERS: Admitting Provider Urology; Emergency Provider Emergency Medicine; Family Provider Family Medicine; PCP Family Medicine; Visit Provider Urology
DX: K52.9 Noninfective gastroenteritis and colitis, unspecified (principal); N13.2 Hydronephrosis with renal and ureteral calculous obstruction; F17.210 Nicotine dependence, cigarettes, uncomplicated; F12.90 Cannabis use, unspecified, uncomplicated
CPT/HCPCS: 74018; 74177; 80048; 80053; 81001; 83690; 85025; 96361; 96374; 96375; 96376; 99218; 99283; 99285; J7030; Q9967; A4216; G0378; J2405

== ENCOUNTER 2019-03-11 14:07 | Day surgery (SDC) | payer MEDICAID, SELFPAY ==
--- NOTE | 2019-03-11 14:13 | RAD_ITS ---
STUDY: X-RAY - ABDOMEN/PELVIS REASON FOR EXAM: Male, 23 years old. Right renal stone TECHNIQUE: Frontal views of the abdomen were performed COMPARISON: 07 March 2019 FINDINGS: There are 2 small stones in the right renal lower pole and approximately 5 and 3 mm in size. There is a 3-4 mm left renal upper pole stone. There is no intestinal obstruction. Skeletal structures are intact. Appearance is concordant with recent CT. RAD/Abdomen Single View IMPRESSION: 2 small stones on the right, one on the left, all stones measuring less than 5 mm. Electronically Signed: Autumn Hunter, at 15:37 EDT Tel , Service support ,
[2019-03-11 14:35] VITALS: BP 140/86; PULSE 64; RESP 16; TEMP 36.7; O2SAT 99; BMI 26.5
[2019-03-11] MEDS: Lactated Ringers 1,000 ML 100 ML IV (14:49)
--- NOTE | 2019-03-11 18:07 | PCM.HP.BLA ---
History and Physical Date of Admission: 03/11/19 History of Present Illness Date of Admission: 03/08/19 Chief Complaint: Right renal calculi and ureteral calculi The patient is a 23 year old male who presents with a 5 mm stone in the mid right ureter ER called me and asked me to admit the patient for kidney stone pain. This morning the patient was comfortable and no fevers or chills no signs of infection. Will discharge patient this morning on pain medicine and arrange outpatient surgery Past Medical History Medical History: Medical History (Last Updated 07/15/18 @ 07:27 by Yadira Mast) Diarrhea R19.7 Difficulty balancing R29.818 History of loss of consciousness Z87.898 Allergies No Known Allergies Allergy (Verified 03/07/19 20:07) Home Medications: Ambulatory Orders Medication Instructions Recorded Ondansetron [Zofran Odt] 4 mg PO Q8H PRN PRN #10 tab 03/07/19 Oxycodone HCl/Acetaminophen 1 tab PO Q6H PRN PRN 3 Days #12 tab 03/07/19 [Percocet 5/325] Tazarotene [Tazorac] 1 applic TOPICAL BID 03/07/19 Multivitamin with Minerals 1 tab PO DAILY 03/08/19 [Multiple Vitamin] Surgical History: no surgical history Lives: Spouse/ Significant Other Smoking Status: Current some day smoker Tobacco Use: Cigarettes Review of Systems Constitutional: Denies: Chills, Fever, Weight Change HEENT: Denies: Head Aches, Sinus Congestion, Sinus Drainage Cardiovascular: Denies: Chest Pain, Palpitations Respiratory: Denies: Cough, Shortness of breath at rest, Sputum production Gastrointestinal: Denies: Abdominal Pain, Nausea, Vomiting Genitourinary: Denies: Dysuria Musculoskeletal: Denies: Joint Pain, Joint Tenderness Skin: Denies: Rash, Wounds Neurological: Denies: Numbness, Tingling, Focal weakness Psychiatric: Denies: Anxiety, Depression, Homicidal Ideations, Suicidal Ideations Hematologic/ Lymphatic: Denies: Easy Bruising, Easy Bleeding VTE Information - Inpt Only VTE Present on Admission: No VTE Mechan Device Prophylaxis: SCD's Patient Problems: Active and Suspected Problems (Last Updated 07/15/18 @ 07:27 by Yadira Mast) Right kidney stone (Acute) - Physical Exam General: Alert, Oriented x3, Cooperative HEENT: Atraumatic, PERRLA, EOMI, Normocephalic Neck: Supple, No JVD, Negative Carotid Bruits Lungs: Clear to auscultation, Normal air movement Cardiovascular: Regular rate, No murmurs Abdomen: Bowel Sounds Present, Soft, Non Tender Extremities: No edema, Capillary Refill Less than 3 Seconds Skin: No rashes, No breakdown Musculoskeletal: No Tenderness to Palpation of Joints or Extremities Neurological: Cranial nerves II-XII grossly intact Psych/Mental Status: Normal Affect, Appropriate Vital Signs Temp Pulse Resp BP Pulse Ox 98.1 F 65 14 107/59 L 100 03/08/19 05:06 03/08/19 05:06 03/08/19 05:06 03/08/19 05:06 03/08/19 05:06 Oxygen Delivery Method Room Air Weight: 87.1 kg Body Mass Index (BMI) 27.5 Intake and Output for Last 24 Hours 03/06/19 03/07/19 03/08/19 23:59 23:59 23:59 Intake Total 1000 / 1000 Output Total 150 / 150 Balance 850 / 850 Laboratory Tests Past 24 Hrs 03/07/19 03/07/19 03/07/19 21:25 21:25 21:25 WBC 19.4 H RBC 5.09 Hgb 15.3 Hct 46.4 MCV 91.2 MCH 30.1 MCHC 33.0 RDW Std Deviation 43.8 RDW Coeff of Supa 13.0 Plt Count 329 MPV 9.1 Immature Gran % (Auto) 0.400 Neut % (Auto) 83.9 H Lymph % (Auto) 9.7 L [place] % (Auto) 5.5 Eos % (Auto) 0.2 Baso % (Auto) 0.3 Absolute Neuts (auto) 16.3 H Absolute Lymphs (auto) 1.87 Nucleated RBC % 0 Sodium 140 Potassium 3.6 Chloride 106 Carbon Dioxide 25.0 Anion Gap 9 BUN 19 H Creatinine 1.33 H Estim Creat Clear Calc 89.19 Est GFR (MDRD) Af Amer 85 Est GFR (MDRD) Non-Af 70 BUN/Creatinine Ratio 14.3 Glucose 120 H Calcium 9.4 Urine Color Yellow Urine Clarity Sl. Cloudy Urine pH 5.0 Ur Specific [place] 1.025 Urine Protein 30 H Urine Glucose (UA) Normal Urine Ketones 50 H Urine Occult Blood 250 H Urine Nitrite Negative Urine Bilirubin Negative Urine Urobilinogen 1 H Ur Leukocyte Esterase 25 H Urine RBC 10-25 SEEN Urine WBC 0-5 SEEN Ur Squamous Epith Cells 0-5 SEEN Urine Bacteria 0 SEEN Urine Mucus 0 SEEN Assessment/Plan All Active Problems (Last Updated 07/15/18 @ 07:27 by Yadira Mast) Right kidney stone (Acute) Gastroenteritis (Acute) 23-year-old male with a right mid ureteral calculi admitted for pain control will discharge home this morning with pain medicine and antinausea pills will have my office set him up for outpatient surgery right ESWL possible stent this coming Thursday. Plan for Right ESWL today, possible stent
[2019-03-11] MEDS: Cefazolin 2 GM in 0.9% Normal Saline 100 ML IV (18:08)
--- NOTE | 2019-03-11 18:08 | DCINST_ITS ---
Discharge Diet: Light diet - advance as tolerated Discharge Activity: Return to Normal Activity, - - may return to work on Thursday Call your doctor if your incision/area has: Continuous Slow Oozing, Sudden Increased Bleeding, Increased Pain/ Swelling, Increased Redness, Foul Smelling Discharge, Swelling at the incision site Call your doctor if you observe: Fever of 101 or Higher, Uncontrolled pain Suture Line Care: Avoid Pulling/Pushing, Avoid Pinching/Bending Instructions: Shock Wave Lithotripsy Allergies/Adverse Reactions: Allergies No Known Allergies Allergy (Verified 03/10/19 13:05) Medications to take at Discharge Ondansetron [Zofran Odt] 4 mg PO Q8H PRN PRN #10 tab 03/07/19 Oxycodone HCl/Acetaminophen [Percocet 5/325] 1 tab PO Q6H PRN PRN 3 Days #12 tab 03/07/19 Tazarotene [Tazorac] 1 applic TOPICAL BID 03/07/19 HYDROmorphone tablet [Dilaudid] 2 mg PO Q3H PRN PRN 5 Days #20 tab 03/08/19 Ketorolac [Toradol] 10 mg PO Q6H PRN PRN #10 tab 03/08/19 Multivitamin with Minerals [Multiple Vitamin] 1 tab PO DAILY 03/08/19 Hydrocodone Bitart/Apap 5-325 [[place] 5MG-325MG] 1 tab PO Q4H PRN PRN #20 tab 03/11/19 The following prescriptions were given: Hydrocodone Bitart/Apap 5-325 [[place] 5MG-325MG] 1 tab PO Q4H PRN PRN #20 tab PRN Reason: Pain Prescription Printed Primary Care Physician: Hi Aguilar DO [Primary Care Provider] - Test Results: Test results from this visit will be discussed in further detail at your follow- up appointment, if applicable. Please Follow Up With: Marty Cali MD When: in 2 weeks, please call to make an appointment.
--- NOTE | 2019-03-11 18:42 | OP.PCM_ITS ---
Report of Operation Date of Procedure: 03/11/19 Pre-Operative Diagnosis: Right ureteral calculi causing obstruction Post-Operative Diagnosis: Same Surgery/Procedure Performed:: right extracorporeal shockwave lithotripsy Description of Surgical Findings:: 23-year-old male presented to the emergency room with obstructing stone in the mid right ureter. He was discharged home with pain medicine he now presents to the operating room for treatment of the stone with shockwave lithotripsy. Patient was taken back to the operating room at the smooth induction of general anesthesia he was placed supine on the table we then located the stone and the pelvic area in the distal right ureter. We then placed a stone in the F2 focal point of the machine and then deliver 3000 shockwaves to the stone at a rate of 90-120, power ranging from 5 to 9 kV. During the treatment cycle the stone broke up with a little tiny pieces was not visible anymore under fluoroscopy was successful fragmentation of the stone. We monitored the stone during the treatm ent we did translation technique to keep the stone on the focal point. At the end of 3000 shockwaves no more visible stone was seen under fluoroscopy patient anesthetic is currently being reversed plan to see him back in a few weeks with an x-ray. Type of Anesthesia:: General Drains: none - Admit VTE Documentation VTE Present on Admission: No VTE Mechan Device Prophylaxis: SCD's
[2019-03-11 19:00] VITALS: BP 104/61; BP 140/86; PULSE 55; RESP 12; TEMP 36.3; O2SAT 98
[2019-03-11 19:04] VITALS: BP 125/89; BP 140/86; PULSE 71; RESP 14; O2SAT 100
[2019-03-11] MEDS: Ketorolac 15 MG/ML Vial IV (19:06)
[2019-03-11 19:15] VITALS: BP 128/99; BP 140/86; PULSE 70; RESP 16; O2SAT 100
[2019-03-11 19:29] VITALS: BP 130/87; BP 140/86; PULSE 59; RESP 16; TEMP 36.1; O2SAT 99
[2019-03-11] MEDS: HYDROcodone Bitartrate/Apap 5/325 Tablet PO (19:37)
[2019-03-11 19:52] VITALS: BP 140/86
== END 2019-03-11 20:02 | disposition home or self-care (01) ==
LOC: SDC 14:07 → AC 14:11
PROVIDERS: Family Provider Family Medicine; PCP Family Medicine; Referring Provider Urology; Visit Provider Urology
PROC: (CPT 50590; principal; 2019-03-11 16:15)
DX: N13.2 Hydronephrosis with renal and ureteral calculous obstruction (principal); K52.9 Noninfective gastroenteritis and colitis, unspecified; K21.9 Gastro-esophageal reflux disease without esophagitis; Z87.442 Personal history of urinary calculi; F12.90 Cannabis use, unspecified, uncomplicated; F17.210 Nicotine dependence, cigarettes, uncomplicated
CPT/HCPCS: 00873; 50590; 74018; J7120; J2405

== ENCOUNTER → 2019-03-28 15:07 | Outpatient (CLI) | payer MEDICAID, SELFPAY ==
[2019-03-11 14:35] VITALS: BMI 26.5
--- NOTE | 2019-03-28 15:15 | RAD_ITS ---
HISTORY: Left sided pain, kidney stones EXAM: KUB COMPARISON: March 11, 2019 FINDINGS: # of images incl. paperwork: 2 Hyperdense structure superimposed of the superior pole left kidney, superimposed over the left 12th rib at the level of the left first lumbar transverse process is likely a nonobstructing left nephrolith. Calcifications superimposed over the ascending colon on the previous study are no longer identified. A coin is present superimposed over the right femoral head No free air is perceived. No dilated or loops of bowel are seen. There is no mass or suspicious calcification. No evidence of obstruction. RAD/Abdomen Single View IMPRESSION: No acute disease in the abdomen perceived. Nonobstructing left nephrolith suspected unchanged. at 2202 Reported and signed by: Gabe Felder MD Electronically Signed: Gabe Felder MD at 22:01 EST Tel , Service support ,
== END ==
PROVIDERS: Family Provider Family Medicine; PCP Family Medicine; Referring Provider Urology; Visit Provider Urology
DX: N20.0 Calculus of kidney (principal)
CPT/HCPCS: 74018

== ENCOUNTER 2022-02-14 20:02 | Emergency (ER) | payer MEDICAID, SELFPAY ==
[2022-02-14 20:03] VITALS: BP 130/95; PULSE 67; RESP 18; TEMP 36.1; O2SAT 100; BMI 27.1
[2022-02-14 20:25] LABS: Mucous, Urine 0 SEEN /hpf (<or=2+); White Blood Cells 0 SEEN /hpf (0-5)
[2022-02-14 20:54] LABS: Color, Urine Yellow (Yellow); Glucose, Dipstick Normal (Normal); Ketone-Dipstick Negative (Negative); Leukocyte Esterase-Dipstick Negative /ul (Negative); Nitrite-Dipstick Negative (Negative); Occult Blood-Urine 250 /ul (Negative); Protein-Dipstick 15 mg/dl (Negative); Urine Bilirubin Dipstick Negative (Negative); Urine Clarity Clear (Clear); Urine Urobilinogen Normal (Normal)
--- NOTE | 2022-02-14 21:18 | CT_ITS ---
STUDY: CT ABDOMEN AND PELVIS WITHOUT CONTRAST REASON FOR EXAM: Male, 26 years old. flank pain RADIATION DOSAGE (If Supplied By Facility): CTDIvol = ( 7.90 ) mGy, DLP = ( 406.48 ) mGycm TECHNIQUE: Transaxial images were obtained from the dome of the diaphragm to the symphysis pubis without oral contrast, and without intravenous contrast. Sagittal and coronal images were reconstructed. Individualized dose optimization techniques were used for this CT. COMPARISON: 03/07/2019 FINDINGS: The visualized lung bases are unremarkable. The visualized portions of the heart are within normal limits. Normal liver. Normal gallbladder and extrahepatic biliary system. Normal spleen. Normal pancreas. Normal bilateral adrenal glands. Multiple bilateral small nonobstructing renal stones. 4 mm obstructing stone of the proximal right ureter with moderate hydronephrosis. Normal visualized stomach. Normal small intestine. Normal colon. The appendix is visualized and appears normal. Normal abdominal aorta. Normal inferior vena cava. Normal retroperitoneum. Normal urinary bladder. Normal abdominal wall. Normal osseous structures. CT/Abdomen/Pelvis without Cont IMPRESSION: 4 mm obstructing stone of the proximal right ureter with moderate hydronephrosis. Electronically Signed: Ramana Bolaños MD at 22:17 EDT ,
--- NOTE | 2022-02-14 21:19 | ED.VIS.GI ---
HPI HPI - GI History of Present Illness Chief Complaint: Flank Pain Narrative Narrative: A 6-year-old male presenting with nausea, vomiting, right flank pain. He has a history of kidney stones in the past. He states this started abruptly yesterday and it feels sharp in nature. It radiates from the right flank to the right lower abdomen. He denies dysuria or hematuria. He has not had a fever or chills. He denies diarrhea or constipation. PFSH PFSH Medical History Anxiety Depression Diarrhea Difficulty balancing History of kidney stones History of loss of consciousness Hypothyroidism Smoker Thyroid disease Home Medications levothyroxine 50 mcg capsule 50 mcg PO DAILY 12/08/19 [History Last Taken Unknown] ondansetron 4 mg disintegrating tablet 4 mg PO Q8H PRN nausea and vomiting #10 tabs 02/14/22 [Rx Last Taken Unknown] oxycodone-acetaminophen 5 mg-325 mg tablet (Percocet) 1 tab PO Q6H PRN pain 3 days #12 tabs 02/14/22 [Rx Last Taken Unknown] Allergy/AdvReac Type Severity Reaction Status Date / Time No Known Allergies Allergy Verified 02/14/22 20:07 Family History (Updated 12/08/19 @ 08:23 by Yadira Mats) Other Anxiety Arthritis Asthma Cancer Depression Diabetes Heart disease Hormone Problems Hypertension Kidney disease Mental disorder Thyroid disorder Surgical History H/O lithotripsy Social History Smoking Status: Current some day smoker tobacco type: cigars alcohol intake: current alcohol intake frequency: a few times a month Alcohol type: beer substance use type: does not use what type of physical activity do you participate in: other frequency: daily ROS ROS ED Constitutional Constitutional ED: Reports sweats; Denies chills or fever(s) ENT ENT ED: Denies rhinorrhea or sore throat Cardiovascular Cardiovascular: Denies chest pain or palpitations Respiratory/Chest Respiratory/Chest: Denies cough or dyspnea Gastrointestinal Gastrointestinal: Reports abdominal pain, nausea and vomiting Genitourinary Genitourinary ED: Denies dysuria or hematuria Musculoskeletal Musculoskeletal: Reports back pain; Denies arthralgias Integumentary Denies abscess Neurologic Neurologic: Denies headache(s) Psychiatric Psychiatric: Denies anxiety or depression Endocrine Endocrinology: Denies polydipsia or polyphagia EXAM Physical Exam Const Vital Signs: 02/14/22 20:03 Temperature 97 F L Temperature Source Temporal Pulse Rate 67 Respiratory Rate 18 Blood Pressure 130/95 H Blood Pressure Mean 106 Pulse Ox 100 Oxygen Delivery Method Room Air Positive well nourished Constitutional Narrative: Appears to be in pain General Appearance ED: Negative for pallor HEENT Reports moist mucous membranes normocephalic and atraumatic Eyes PERRL and EOMs intact bilaterally Resp normal respiratory effort and clear to auscultation bilaterally Cardio regular rate and regular rhythm GI Palpation: tender RLQ Back/Spine General Back: CVA tenderness right Neuro CN's II-XII intact bilaterally Sensorium / Orientation: alert Motor Exam: strength 5/5 throughout Psych mental status grossly normal and thought process normal Skin no wounds General Skin Exam: Negative for jaundice or pallor MDM MDM MDM Narrative Medical decision making narrative: Patient presenting with right-sided flank pain. Has a history of kidney stones. Previously required lithotripsy by Dr. Cali. At that time his ureteral calculus was 6 mm. Obtain blood work today and his CBC shows a leukocytosis of 19.7. Hemoglobin hematocrit are stable. Platelets are normal. Patient does appear to have elevated white blood cell counts on most visits to the ER. His renal function is normal. His electrolytes are normal with exception of potassium 3.4. Urinalysis negative for infection but does show occult blood of 250. Patient treated with IV morphine, Toradol, Zofran. I did obtain a CT of the abdomen pelvis without contrast which shows a 4 mm proximal ureteral stone with moderate hydronephrosis. Reevaluation at 10:30 PM patient looks very comfortable. He states his pain is improved. I will give him an oxycodone and he is given Percocet and Zofran for home. Return precautions discussed. He will follow-up with Dr. Cali as an outpatient. Impression: 1. Nausea/vomiting 2. Leukocytosis 3. Hematuria 4. 4 mm right proximal ureteral stone 5. Right-sided hydronephrosis Lab Data Attestation: I reviewed the patient's lab results. Labs: Laboratory Results - last 24 hr 02/14/22 02/14/22 02/14/22 20:20 21:40 21:40 WBC 19.7 H RBC 4.85 Hgb 14.9 Hct 43.5 MCV 89.7 MCH 30.7 MCHC 34.3 RDW Std Deviation 41.4 RDW Coeff of Supa 12.6 Plt Count 330 MPV 8.6 Immature Gran % (Auto) 0.500 Neut % (Auto) 79.5 H Lymph % (Auto) 12.7 L [place] % (Auto) 6.2 Eos % (Auto) 0.7 Baso % (Auto) 0.4 Absolute Neuts (auto) 15.7 H Absolute Lymphs (auto) 2.51 Nucleated RBC % 0 Sodium 142 Potassium 3.4 L Chloride 105 Carbon Dioxide 25.0 Anion Gap 12 BUN 16 Creatinine 1.17 Estim Creat Clear Calc 101.90 Est GFR (MDRD) Af Amer 96 Est GFR (MDRD) Non-Af 80 BUN/Creatinine Ratio 13.7 Glucose 105 Calcium 9.6 Urine Color Yellow Urine Clarity Clear Urine pH 6.0 Ur Specific [place] 1.020 Urine Protein 15 H Urine Glucose (UA) Normal Urine Ketones Negative Urine Occult Blood 250 H Urine Nitrite Negative Urine Bilirubin Negative Urine Urobilinogen Normal Ur Leukocyte Esterase Negative Urine RBC 5-10 SEEN Urine WBC 0 SEEN Ur Squamous Epith Cells 0-5 SEEN Urine Bacteria RARE Urine Mucus 0 SEEN Radiography Diagnostic Testing: Clinical Impression(s) from Imaging Studies Abdomen/Pelvis CT 02/14/22 21:18 IMPRESSION: 4 mm obstructing stone of the proximal right ureter with moderate hydronephrosis. Electronically Signed: Ramana Bolaños MD at 22:17 EDT , Discharge Plan Triage Chief Complaint: Flank Pain ED Provider: Ramesh Rodriguez Dx/Rx/DC Orders Instructions: ED Kidney Stone w/ Colic Prescriptions: New ondansetron 4 mg tablet,disintegrating 4 mg PO Q8H PRN (Reason: nausea and vomiting) Qty: 10 0RF oxycodone-acetaminophen [Percocet] 5-325 mg tablet 1 tab PO Q6H PRN (Reason: pain) 3 Days Qty: 12 0RF No Action levothyroxine 50 mcg capsule 50 mcg capsule 50 mcg PO DAILY Primary Care Provider: Care Physician,No Primary Referrals: Marty Cali MD [Med Staff - Active Staff] - As soon as possible Care Physician,No Primary [Primary Care Provider] - Disposition Disposition: Home, Self Care
[2022-02-14 21:30] LABS: Bacteria RARE /hpf (None Seen); Red Blood Cells-Urine 5-10 SEEN /hpf (0-5); Squamous Epithelial Cells - UA 0-5 SEEN /hpf (0-5)
[2022-02-14] MEDS: Ondansetron 4 MG/2 ML Vial IV (21:32)
[2022-02-14] MEDS: Ketorolac 15 MG/ML Vial IV (21:32)
[2022-02-14] MEDS: Morphine 4 MG/ML Syringe IV (21:32)
[2022-02-14 21:50] LABS: Absolute Lymphocyte Count 2.51 X10^3/uL (0.83-4.51); Absolute Neutrophil Count 15.7 X10^3/uL (2.0-7.7); Basophil# 0.08 X10^3/uL; Basophil% 0.4 % (0-1); Eosinophil# 0.14 X10^3/uL; Eosinophils% 0.7 % (0-5); Hematocrit 43.5 % (40-54); Hemoglobin 14.9 g/dL (13.0-16.5); Lymphocyte # 2.51 X10^3/ul (0.83-4.51); Lymphocyte % 12.7 % (19-41); Mean Corp Hgb Conc 34.3 g/dL (32-36); Mean Corpuscular Hgb 30.7 pg (27.0-32.0); Mean Corpuscular Volume 89.7 fL (80-94); Mean Platelet Vol. 8.6 fl (6.2-12.0); Monocyte# 1.23 X10^3/uL; Monocyte% 6.2 % (0-10); NRBC Flagged by Analyzer 0 % (0-5); Neutrophil # 15.69 X10^3/uL (2.7-7.7); Neutrophil % 79.5 % (47-70); Platelet Count 330 K/mm3 (150-450); RBC Distribution Width CV 12.6 % (11.6-14.6); RBC Distribution Width SD 41.4 fl (35.1-43.9); Red Blood Count 4.85 M/mm3 (4.6-6.2); White Blood Count 19.7 K/mm3 (4.4-11.0)
[2022-02-14 22:04] LABS: Anion Gap 12 (5-15); BUN 16 mg/dL (7-18); BUN/Creat Ratio 13.7 RATIO (10-20); Calcium,Total 9.6 mg/dL (8.5-10.1); Chloride 105 mmol/L (98-107); Creatinine, Serum 1.17 mg/dL (0.70-1.30); EST Glomerular Filtration Rate 80 mL/min (>60); Est Glom Filt Rate - Afr Amer 96 mL/min (>60); Glucose 105 mg/dL (74-106); Potassium 3.4 mmol/L (3.5-5.1); Sodium Level 142 mmol/L (136-145)
[2022-02-14] MEDS: oxyCODONE 5 MG Tablet PO (22:43)
[2022-02-14 22:51] VITALS: BP 128/65; PULSE 78; RESP 18; O2SAT 96
== END 2022-02-14 22:52 | disposition home or self-care (01) ==
PROVIDERS: Emergency Provider Student in an Organized Health Care Education/Training Program; Visit Provider Student in an Organized Health Care Education/Training Program
DX: N13.2 Hydronephrosis with renal and ureteral calculous obstruction (principal); F32.A Depression, unspecified; F41.9 Anxiety disorder, unspecified; E03.9 Hypothyroidism, unspecified; Z87.442 Personal history of urinary calculi; Z79.899 Other long term (current) drug therapy; F17.290 Nicotine dependence, other tobacco product, uncomplicated
CPT/HCPCS: 74176; 80048; 81001; 85025; 96374; 96375; 99283; A4216; J2405

== ENCOUNTER 2022-04-04 09:55 | Emergency (ER) | payer MEDICAID, SELFPAY ==
[2022-04-04 09:58] VITALS: BP 149/102; PULSE 72; RESP 17; TEMP 36.4; O2SAT 100; BMI 28.7
--- NOTE | 2022-04-04 10:11 | CT_ITS ---
STUDY: CT ABDOMEN AND PELVIS WITHOUT CONTRAST REASON FOR EXAM: Male, 26 years old. Right flank pain RADIATION DOSAGE (If Supplied By Facility): CTDIvol = ( 10.81 ) mGy, DLP = ( 580.75 ) mGycm TECHNIQUE: Transaxial images were obtained from the dome of the diaphragm to the symphysis pubis without oral contrast, and without intravenous contrast. Sagittal and coronal images were reconstructed. Individualized dose optimization techniques were used for this CT. COMPARISON: Comparison is made with prior study 02/14/2022. FINDINGS: The visualized lung bases are unremarkable. The visualized portions of the heart are within normal limits. Normal liver. Normal gallbladder and extrahepatic biliary system. Normal spleen. Normal pancreas. Normal bilateral adrenal glands. Small nonobstructive right intrarenal calculi. Moderate degree of right hydronephrosis and right hydroureter down to the bladder. There is evidence of a 5.1 mm calculus at the base of the bladder on the right side in keeping with a recently passed stone. 3 mm nonobstructive calculus in the midpole calyx of the left kidney. Stable 7.8 mm rounded calcification in the region of the left ureteropelvic junction. There is a small hiatal hernia. Normal small intestine. Normal colon. The appendix is visualized and appears normal. Normal abdominal aorta. Normal inferior vena cava. Normal retroperitoneum. Normal urinary bladder. Normal abdominal wall. Normal osseous structures. CT/Abdomen/Pelvis without Cont IMPRESSION: 5.1 mm calculus at the base of the bladder on the right side with evidence of right hydronephrosis and right hydroureter most likely representing a recently passed calculus. Nonobstructive bilateral intrarenal calculi. Stable 7.8 mm rounded calcification in the region of the left ureteral vesicle junction. Electronically Signed: Lakhwinder Chan MD at 11:07 EST ,
[2022-04-04] MEDS: Ketorolac 30 MG/ML Syringe IV (10:28)
[2022-04-04] MEDS: 0.9% Normal Saline 1,000 ML 1000 ML IV (10:28)
[2022-04-04] MEDS: Ondansetron 4 MG/2 ML Vial IV (10:28)
[2022-04-04 10:36] LABS: Red Blood Cells-Urine 0 SEEN /hpf (0-5)
[2022-04-04 10:38] LABS: Color, Urine Yellow (Yellow); Glucose, Dipstick Normal (Normal); Ketone-Dipstick 15 mg/dl (Negative); Leukocyte Esterase-Dipstick 25 /ul (Negative); Nitrite-Dipstick Negative (Negative); Occult Blood-Urine 10 /ul (Negative); Protein-Dipstick 30 mg/dl (Negative); Specific Gravity, Urine 1.015 (1.002-1.030); Urine Bilirubin Dipstick Negative (Negative); Urine Clarity Clear (Clear); Urine Urobilinogen Normal (Normal); Urine pH 6.5 (5.0 - 8.0)
[2022-04-04 10:42] LABS: Absolute Lymphocyte Count 2.71 X10^3/uL (0.83-4.51); Absolute Neutrophil Count 13.8 X10^3/uL (2.0-7.7); Basophil# 0.12 X10^3/uL; Basophil% 0.7 % (0-1); Eosinophil# 0.35 X10^3/uL; Eosinophils% 1.9 % (0-5); Hematocrit 43.4 % (40-54); Hemoglobin 14.5 g/dL (13.0-16.5); Lymphocyte # 2.71 X10^3/ul (0.83-4.51); Lymphocyte % 14.8 % (19-41); Mean Corp Hgb Conc 33.4 g/dL (32-36); Mean Corpuscular Hgb 30.8 pg (27.0-32.0); Mean Corpuscular Volume 92.1 fL (80-94); Mean Platelet Vol. 8.7 fl (6.2-12.0); Monocyte# 1.17 X10^3/uL; Monocyte% 6.4 % (0-10); NRBC Flagged by Analyzer 0 % (0-5); Neutrophil # 13.79 X10^3/uL (2.7-7.7); Neutrophil % 75.4 % (47-70); Platelet Count 396 K/mm3 (150-450); RBC Distribution Width CV 12.8 % (11.6-14.6); RBC Distribution Width SD 43.5 fl (35.1-43.9); Red Blood Count 4.71 M/mm3 (4.6-6.2); White Blood Count 18.3 K/mm3 (4.4-11.0)
[2022-04-04 10:47] LABS: Bacteria 1+ /hpf (None Seen); Mucous, Urine 3+ /hpf (<or=2+)
[2022-04-04 10:48] LABS: Squamous Epithelial Cells - UA 0-5 SEEN /hpf (0-5); White Blood Cells 0-5 SEEN /hpf (0-5)
[2022-04-04 10:55] LABS: ALB/GLOB Ratio 1.1 RATIO (0.9-2.4); AST(SGOT) 25 U/L (15-37); Alanine Aminotransfer ALT/SGPT 48 U/L (16-61); Alkaline Phosphatase 83 U/L (45-117); Anion Gap 5 (5-15); BUN 14 mg/dL (7-18); Calcium,Total 9.5 mg/dL (8.5-10.1); Chloride 107 mmol/L (98-107); Creatinine, Serum 1.17 mg/dL (0.70-1.30); EST Glomerular Filtration Rate 80 mL/min (>60); Est Glom Filt Rate - Afr Amer 96 mL/min (>60); Estimated Creatinine Clearance 98.79 ml/min; Globulin 3.6 g/dL (2.2-4.2); Glucose 103 mg/dL (74-106); Protein, Total 7.6 g/dL (6.4-8.2); Sodium Level 138 mmol/L (136-145)
[2022-04-04 12:03] VITALS: RESP 16
--- NOTE | 2022-04-04 12:14 | EX.ED.DYSGE1 ---
HPI History of Present Illness Chief Complaint: Flank Pain Informant: patient Onset/Context/Timing Onset: Today Context: Sudden Onset Timing: Continuous Quality: Stabbing Location: Right lower abdomen Worsened by: Nothing Relieved by: Nothing Narrative Narrative: Patient presents with right flank pain that began today. Patient states it began rather suddenly. Patient states pain is over the right lower abdomen. Patient describes it as stabbing. Patient states he was here in the emergency department approximately 1 month ago and was told he had a kidney stone. Patient does not remember the size of the kidney stone. Patient states he has not had any pain since that time. Patient states nothing makes his pain worse and nothing makes it better. Patient states he has not followed up with urology. [facility] Medical History Anxiety Depression Diarrhea Difficulty balancing History of kidney stones History of loss of consciousness Hypothyroidism Smoker Thyroid disease Home Medications levothyroxine 50 mcg capsule 100 mcg PO DAILY 12/08/19 [History Last Taken Unknown] ondansetron 4 mg disintegrating tablet 4 mg PO Q8H PRN nausea and vomiting #10 tabs 02/14/22 [Rx Last Taken Unknown] oxycodone-acetaminophen 5 mg-325 mg tablet (Percocet) 1 tab PO Q6H PRN pain 3 days #12 tabs 02/14/22 [Rx Last Taken Unknown] hydrocodone-acetaminophen 5-325mg 5mg-325mg 1 tab PO Q6H PRN PRN Pain 3 days #10 TABLETS 04/04/22 [Rx Last Taken Unknown] Allergy/AdvReac Type Severity Reaction Status Date / Time No Known Allergies Allergy Verified 04/04/22 09:56 Family History (Updated 12/08/19 @ 08:23 by Yadira Mast) Other Anxiety Arthritis Asthma Cancer Depression Diabetes Heart disease Hormone Problems Hypertension Kidney disease Mental disorder Thyroid disorder Surgical History H/O lithotripsy Social History Smoking Status: Current some day smoker tobacco type: cigarettes and cigars alcohol intake: current alcohol intake frequency: a few times a month Alcohol type: beer substance use type: does not use what type of physical activity do you participate in: other frequency: daily ROS ROS ED Constitutional Constitutional ED: Reports chills and subjective; Denies fever(s) Eyes Eyes: Denies blurry vision or change in vision ENT ENT ED: Denies rhinorrhea or sore throat Cardiovascular Cardiovascular: Denies chest pain or palpitations Respiratory/Chest Respiratory/Chest: Denies cough or dyspnea Gastrointestinal Gastrointestinal: Reports abdominal pain, nausea and vomiting Genitourinary Genitourinary ED: Reports dysuria; Denies hematuria Musculoskeletal Musculoskeletal: Denies back pain or neck pain Integumentary Denies abscess or rash Neurologic Neurologic: Denies headache(s) or weakness Allergic/Immunologic Allergic/Immunologic ED: Denies mouth swelling or urticaria EXAM Physical Exam Const Vital Signs: 04/04/22 09:58 04/04/22 12:03 Temperature 97.5 F L Temperature Source Temporal Pulse Rate 72 Respiratory Rate 17 16 Blood Pressure 149/102 H Blood Pressure Mean 117 Pulse Ox 100 Oxygen Delivery Method Room Air Positive well nourished and well developed General Appearance ED: well developed HEENT Reports moist mucous membranes Neck supple and no JVD Resp normal respiratory effort and clear to auscultation bilaterally Cardio regular rate, regular rhythm and no murmurs GI normal to inspection, nondistended, normoactive bowel sounds Palpation: soft and tender RLQ; Negative for guarding or rebound tenderness present Back/Spine no CVA tenderness Extremity normal to inspection General Extremety ED: Negative for edema or tenderness General Extremity: Negative for edema Neuro oriented x3, CN's II-XII intact bilaterally and no sensory deficits noted Sensorium / Orientation: alert Motor Exam: strength 5/5 throughout Psych mental status grossly normal Skin no rashes or lesions noted MDM MDM MDM Narrative Medical decision making narrative: Patient was given IV fluids, Toradol, and Zofran. CBC shows a leukocytosis of 18.3. This is consistent with prior results. Comprehensive metabolic profile was within normal limits. Urinalysis does not show any evidence of urinary tract infection or hematuria. CT scan of the abdomen and pelvis was obtained. There is a 5.1 mm calculus at the base of the bladder on the right side with right hydronephrosis and hydroureter consistent with a recently passed stone. There are no other acute abnormalities noted. This was interpreted by the radiologist and reviewed by myself. Patient is feeling better on reevaluation. Patient was given a prescription for a short course of [place]. Patient was instructed to drink plenty of fluids. Patient was instructed to follow-up with urology in 5 to 7 days. Patient understood and was agreeable with the plan. All questions were answered. Lab Data Attestation: I reviewed the patient's lab results. Labs: Laboratory Results - last 24 hr 04/04/22 04/04/22 04/04/22 10:27 10:27 10:31 WBC 18.3 H RBC 4.71 Hgb 14.5 Hct 43.4 MCV 92.1 MCH 30.8 MCHC 33.4 RDW Std Deviation 43.5 RDW Coeff of Supa 12.8 Plt Count 396 MPV 8.7 Immature Gran % (Auto) 0.800 Neut % (Auto) 75.4 H Lymph % (Auto) 14.8 L Walker % (Auto) 6.4 Eos % (Auto) 1.9 Baso % (Auto) 0.7 Absolute Neuts (auto) 13.8 H Absolute Lymphs (auto) 2.71 Nucleated RBC % 0 Sodium 138 Potassium 4.0 Chloride 107 Carbon Dioxide 26.0 Anion Gap 5 BUN 14 Creatinine 1.17 Estim Creat Clear Calc 98.79 Est GFR (MDRD) Af Amer 96 Est GFR (MDRD) Non-Af 80 BUN/Creatinine Ratio 12.0 Glucose 103 Calcium 9.5 Total Bilirubin 0.40 AST 25 ALT 48 Alkaline Phosphatase 83 Total Protein 7.6 Albumin 4.0 Globulin 3.6 Albumin/Globulin Ratio 1.1 Urine Color Yellow Urine Clarity Clear Urine pH 6.5 Ur Specific [place] 1.015 Urine Protein 30 H Urine Glucose (UA) Normal Urine Ketones 15 H Urine Occult Blood 10 H Urine Nitrite Negative Urine Bilirubin Negative Urine Urobilinogen Normal Ur Leukocyte Esterase 25 H Urine RBC 0 SEEN Urine WBC 0-5 SEEN Ur Squamous Epith Cells 0-5 SEEN Urine Bacteria 1+ Urine Mucus 3+ Radiography Diagnostic Testing: Clinical Impression(s) from Imaging Studies Abdomen/Pelvis CT 04/04/22 10:11 IMPRESSION: 5.1 mm calculus at the base of the bladder on the right side with evidence of right hydronephrosis and right hydroureter most likely representing a recently passed calculus. Nonobstructive bilateral intrarenal calculi. Stable 7.8 mm rounded calcification in the region of the left ureteral vesicle junction. Electronically Signed: Lakhwinder Chan MD at 11:07 EST , Discharge Plan Triage Chief Complaint: Flank Pain ED Provider: Ariel Argueta Dx/Rx/DC Orders Clinical Impression: Right distal ureteral calculus, Right flank pain Instructions: ED Kidney Stone w/ Colic Prescriptions: New hydrocodone-acetaminophen [hydrocodone-acetaminophen] 1 TABLET tablet 1 tab PO Q6H PRN PRN (Reason: Pain) 3 Days Qty: 10 0RF No Action levothyroxine 50 mcg capsule 50 mcg capsule 100 mcg PO DAILY ondansetron 4 mg tablet,disintegrating 4 mg PO Q8H PRN (Reason: nausea and vomiting) Qty: 10 0RF oxycodone-acetaminophen [Percocet] 5-325 mg tablet 1 tab PO Q6H PRN (Reason: pain) 3 Days Qty: 12 0RF Primary Care Provider: Rachell Benítez Referrals: Marty Cali MD [Med Staff - Active Staff] - 5-7 Days Rachell Benítez PA [Primary Care Provider] - 5-7 Days Disposition Disposition: Home, Self Care Discharge Date/Time: 04/04/22 12:31
== END 2022-04-04 12:31 | disposition home or self-care (01) ==
PROVIDERS: Emergency Provider Emergency Medicine; PCP Physician Assistant; Visit Provider Emergency Medicine
DX: N13.2 Hydronephrosis with renal and ureteral calculous obstruction (principal); R10.9 Unspecified abdominal pain; N13.4 Hydroureter; F17.210 Nicotine dependence, cigarettes, uncomplicated; R30.0 Dysuria
CPT/HCPCS: 74176; 80053; 81001; 85025; 96361; 96374; 96375; 99284; J2405